=== PATIENT | female | born 1940 | race Two or more races ===

== ENCOUNTER 2021-11-24 05:26 | Day surgery (SDC) | payer OTHER ==
[~2021-11-24 05:26] MED LIST: CATAFLAN PO; GLUMETZA1000 MG PO; TENORMIN100 M1 PO
[2021-11-24] MEDS ORDERED: ULTRACET PO (09:28)
[2021-11-24] MEDS ORDERED: MACROBID 100 M100 MG PO (09:29)
== END 2021-11-24 12:00 | disposition home or self-care (01) ==
LOC: CIR.AMB 05:26
PROVIDERS: ATTEND Obstetrics & Gynecology Gynecology
DX: N81.11 Cystocele, midline (principal); N81.12 Cystocele, lateral; Z20.822 Contact with and (suspected) exposure to COVID-19; N81.6 Rectocele; I10 Essential (primary) hypertension; K21.9 Gastro-esophageal reflux disease without esophagitis

== ENCOUNTER 2022-07-13 06:26 | Day surgery (SDC) | payer OTHER ==
[~2022-07-13] VITALS: Ht 160 cm; Wt 71.7 kg
[~2022-07-13 06:26] MED LIST changes: +LOSARTAN POTAS100 MG PO; +MACROBID 100 M100 MG PO; +ULTRACET PO; +[UNRECOGNIZED DRUG - OTHER] PO
[2022-07-13] MEDS ORDERED: TRAM1TAB98 PO (10:01)
[2022-07-13] MEDS ORDERED: MACROBID 100 M100 MG PO (10:02)
== END 2022-07-13 13:45 | disposition home or self-care (01) ==
LOC: CIR.AMB 06:26
PROVIDERS: ATTEND Obstetrics & Gynecology Gynecology
DX: N81.11 Cystocele, midline (principal); N81.6 Rectocele; N81.5 Vaginal enterocele; N95.2 Postmenopausal atrophic vaginitis; Z20.822 Contact with and (suspected) exposure to COVID-19